=== PATIENT | male | born 1940 | race Caucasian/White ===

== ENCOUNTER 2018-02-20 08:28 | Outpatient (CLI) | payer MEDICARE, OTHER ==
[2018-02-20 09:38] LABS: CHOLESTEROL 228 MG/DL (< 200); HDL CHOLESTEROL 50 MG/DL (40-60); TRIGLYCERIDES 128 MG/DL (30-150)
== END 2018-02-20 10:28 | disposition home or self-care (01) ==
LOC: LAB 08:28
DX: E78.00 Pure hypercholesterolemia, unspecified (principal)
CPT/HCPCS: 36415; 80061